=== PATIENT | male | born 1965 | race Hispanic/Latino ===

== ENCOUNTER 2023-03-31 01:34 | Inpatient (IN) | payer SELFPAY ==
[2023-03-31] MEDS ORDERED: Ondansetron PF 4 MG/2 ML Vial IVP PRN (02:39)
[2023-03-31] MEDS ORDERED: Acetaminophen 325 MG TAB PO PRN (02:39)
[2023-03-31] MEDS ORDERED: Dextrose 50% Abboject 50 ML SYRINGE SLOW IVP PRN (02:42)
[2023-03-31] MEDS ORDERED: Glucagon 1 MG/ML KIT IM PRN (02:42)
[2023-03-31] MEDS ORDERED: HumaLOG 300 UNITS/3 ML VIAL SC PRN (02:42)
[2023-03-31] MEDS ORDERED: Dextrose 5% in Water 1,000 ML IV PRN (02:42)
[2023-03-31] MEDS ORDERED: Simethicone Chewable 80 MG TAB PO PRN (03:22)
[2023-03-31 03:25] VITALS: BMI 36.1
[2023-03-31 03:43] LABS: #Eosinphils 0.2 10x3/uL (0.0-0.5); #Monocytes 0.8 10x3/uL (0.0-1.1); #Neutrophils 5.9 10x3/uL (1.5-8.4); %Basophils 0.5 % (0.0-2.0); %Monocytes 9.5 % (0.0-10.0); %Neutrophils 69.6 % (40.0-75.0); Hematocrit 38.9 % (38.8-50.0); Hemoglobin 13.8 g/dL (13.5-17.5); Mean Corpuscular HGB CONC 35.5 g/dL (32.0-36.0); Mean Corpuscular Hemoglobin 29.3 pg (27.0-33.0); Mean Corpuscular Volume 82.6 fl (81.2-95.1); Mean Platelet Volume 10.8 fl (7.4-10.4); Platelet Count 192 10x3/uL (150-450); RBC Distribution Width 12.3 % (11.5-14.5); Red Blood Cell (RBC) Count 4.71 10x6/uL (4.32-5.72); White Blood Cell (WBC) Count 8.5 10x3/uL (3.5-10.5)
[2023-03-31 03:55] LABS: ALT (SGPT) 18 U/L (8-55); AST (SGOT) 22 U/L (5-34); Albumin 4.1 g/dL (3.5-5.0); Alkaline Phosphatase 64 U/L (40-110); Anion Gap 14 mmol/L (10-20); BUN (Urea Nitrogen) 32 mg/dL (8.4-25.7); Bilirubin, Total 1.6 mg/dL (0.2-1.2); Calc. Creatinine Clearance 55 mL/min (70-130); Calcium 9.1 mg/dL (7.8-10.44); Carbon Dioxide 34 mmol/L (22-29); Chloride 79 mmol/L (98-107); Estimated GFR 33; Globulin 3.1 g/dL (2.4-3.5); Glucose 174 mg/dL (70-105); Magnesium 2.6 mg/dL (1.6-2.6); Potassium 3.2 mmol/L (3.5-5.1); Protein, Total 7.2 g/dL (6.0-8.3); Sodium 124 mmol/L (136-145)
[2023-03-31] MEDS ORDERED: Potassium Chloride 20 MEQ TAB PO SCH ×2 (04:15→12:00)
[2023-03-31] MEDS: Sodium Chloride 0.9% 1,000 ML IV SCH ×2 (05:34→21:22)
[2023-03-31 07:31] LABS: Amphetamine Not Detected (NotDetected); Barbiturates Screen Not Detected (NotDetected); Benzodiazepine Screen Not Detected (NotDetected); Cocaine Metabolite Screen Not Detected (NotDetected); Methadone Not Detected (NotDetected); Methamphetamine Not Detected (NotDetected); Opiate Screen Detected (NotDetected); Oxycodone Screen Not Detected (NotDetected); Phencyclidine (PCP) Not Detected (NotDetected); THC/Cannabinoid Screen Not Detected (NotDetected); Tricyclic Screen Not Detected (NotDetected)
[2023-03-31] MEDS: Apixaban 5 MG TAB PO SCH ×2 (09:13→21:22)
[2023-03-31] MEDS ORDERED: Lidocaine 1% w/Epinephrine 1:100K 20 ML VIAL FS SCH (10:00)
[2023-03-31] MEDS ORDERED: Bupivacaine 0.25% HCL 30 ML VIAL FS SCH (10:00)
[2023-03-31 10:18] LABS: Anion Gap 14 mmol/L (10-20); BUN (Urea Nitrogen) 31 mg/dL (8.4-25.7); Calc. Creatinine Clearance 68 mL/min (70-130); Calcium 8.8 mg/dL (7.8-10.44); Carbon Dioxide 31 mmol/L (22-29); Chloride 84 mmol/L (98-107); Estimated GFR 42; Glucose 160 mg/dL (70-105); Potassium 3.3 mmol/L (3.5-5.1); Sodium 126 mmol/L (136-145)
[2023-03-31] MEDS: HumaLOG 300 UNITS/3 ML VIAL SC PRN ×2 (13:32→17:24)
[2023-03-31 21:46] LABS: Creatinine, Urine 83.03 mg/dL (63-166); Protein, Urine Random Quant Less than 10 mg/dL (1-14)
[2023-04-01 05:12] LABS: #Eosinphils 0.2 10x3/uL (0.0-0.5); #Monocytes 0.8 10x3/uL (0.0-1.1); #Neutrophils 4.2 10x3/uL (1.5-8.4); %Basophils 0.4 % (0.0-2.0); %Eosinophils 3.5 % (0.0-6.0); %Lymphocytes 24.5 % (18.0-47.0); %Monocytes 10.8 % (0.0-10.0); %Neutrophils 60.4 % (40.0-75.0); Hemoglobin 13.6 g/dL (13.5-17.5); Mean Corpuscular HGB CONC 34.9 g/dL (32.0-36.0); Mean Corpuscular Hemoglobin 29.3 pg (27.0-33.0); Mean Corpuscular Volume 84.1 fl (81.2-95.1); Mean Platelet Volume 11.3 fl (7.4-10.4); Platelet Count 205 10x3/uL (150-450); RBC Distribution Width 12.6 % (11.5-14.5); Red Blood Cell (RBC) Count 4.64 10x6/uL (4.32-5.72)
[2023-04-01 05:23] LABS: Anion Gap 14 mmol/L (10-20); BUN (Urea Nitrogen) 24 mg/dL (8.4-25.7); Calc. Creatinine Clearance 90 mL/min (70-130); Calcium 8.8 mg/dL (7.8-10.44); Carbon Dioxide 29 mmol/L (22-29); Chloride 90 mmol/L (98-107); Estimated GFR 59; Glucose 146 mg/dL (70-105); Potassium 3.6 mmol/L (3.5-5.1); Sodium 129 mmol/L (136-145)
[2023-04-01] MEDS ORDERED: Potassium Chloride 20 MEQ TAB PO SCH (07:45)
[2023-04-01] MEDS: Apixaban 5 MG TAB PO SCH ×2 (09:45→20:08)
[2023-04-01] MEDS: Sodium Chloride 0.9% 1,000 ML IV SCH ×2 (09:46→20:08)
[2023-04-01] MEDS: HumaLOG 300 UNITS/3 ML VIAL SC PRN ×2 (12:14→17:18)
[2023-04-01] MEDS ORDERED: Loperamide HCl 2 MG CAP PO PRN (14:22)
[2023-04-01] MEDS ORDERED: Loperamide HCl 2 MG CAP PO SCH (14:30)
[2023-04-01] MEDS: Flecainide 50 MG TAB PO SCH (20:08)
[2023-04-02 04:18] LABS: #Eosinphils 0.2 10x3/uL (0.0-0.5); #Monocytes 0.7 10x3/uL (0.0-1.1); %Basophils 0.6 % (0.0-2.0); %Eosinophils 3.6 % (0.0-6.0); %Lymphocytes 21.5 % (18.0-47.0); %Monocytes 11.1 % (0.0-10.0); %Neutrophils 62.9 % (40.0-75.0); Hematocrit 38.6 % (38.8-50.0); Hemoglobin 13.2 g/dL (13.5-17.5); Mean Corpuscular HGB CONC 34.2 g/dL (32.0-36.0); Mean Corpuscular Hemoglobin 29.5 pg (27.0-33.0); Mean Corpuscular Volume 86.4 fl (81.2-95.1); Mean Platelet Volume 11.1 fl (7.4-10.4); Platelet Count 194 10x3/uL (150-450); RBC Distribution Width 12.6 % (11.5-14.5); Red Blood Cell (RBC) Count 4.47 10x6/uL (4.32-5.72); White Blood Cell (WBC) Count 6.4 10x3/uL (3.5-10.5)
[2023-04-02 04:36] LABS: Anion Gap 10 mmol/L (10-20); BUN (Urea Nitrogen) 13 mg/dL (8.4-25.7); Calc. Creatinine Clearance 119 mL/min (70-130); Calcium 8.8 mg/dL (7.8-10.44); Carbon Dioxide 28 mmol/L (22-29); Chloride 100 mmol/L (98-107); Estimated GFR 82; Glucose 219 mg/dL (70-105); Potassium 3.4 mmol/L (3.5-5.1); Sodium 135 mmol/L (136-145)
[2023-04-02] MEDS: HumaLOG 300 UNITS/3 ML VIAL SC PRN ×2 (05:29→12:12)
[2023-04-02] MEDS: Sodium Chloride 0.9% 1,000 ML IV SCH (06:07)
[2023-04-02] MEDS ORDERED: Potassium Chloride 20 MEQ TAB PO SCH ×2 (09:00→12:00)
[2023-04-02] MEDS: Flecainide 50 MG TAB PO SCH (09:34)
[2023-04-02] MEDS: Apixaban 5 MG TAB PO SCH (09:34)
[2023-04-02] MEDS ORDERED: Lisinopril 20 MG TAB PO SCH (09:45)
[2023-04-02 12:43] VITALS: BP 164/89; TEMP 97.8
[2023-04-03] MEDS ORDERED: Lisinopril 20 MG TAB PO SCH (09:00)
== END 2023-04-02 17:40 | disposition home or self-care (01) | DRG 392 ==
LOC: INTOOBSV 02:20 → CSHTELE 02:20 → OBSVTOIN 04-01 14:52
PROVIDERS: ADMIT Internal Medicine; ATTEND Internal Medicine
DX: K52.9 Noninfective gastroenteritis and colitis, unspecified (principal); N17.9 Acute kidney failure, unspecified; E87.1 Hypo-osmolality and hyponatremia; I48.20 Chronic atrial fibrillation, unspecified; I48.91 Unspecified atrial fibrillation; E86.0 Dehydration; I12.9 Hypertensive chronic kidney disease with stage 1 through stage 4 chronic kidney disease, or unspecified chronic kidney disease; E87.6 Hypokalemia; E11.22 Type 2 diabetes mellitus with diabetic chronic kidney disease; N18.9 Chronic kidney disease, unspecified; Z90.49 Acquired absence of other specified parts of digestive tract; Z98.890 Other specified postprocedural states; Z87.891 Personal history of nicotine dependence
CPT/HCPCS: 36415; 36416; 80048; 80053; 80306; 82533; 82570; 83735; 83930; 83935; 84156; 84300; 84443; 85025; 93005; 93010; 93306; 94760; J1815; J7050